=== PATIENT | male | born 1970 | race Two or more races ===

== ENCOUNTER 2023-05-03 08:05 | Emergency (ER) | payer OTHER ==
[~2023-05-03] VITALS: Ht 172.7 cm; Wt 76.2 kg
[2023-05-03] MEDS ORDERED: COZAAR50 MG PO (08:15)
[2023-05-03] MEDS ORDERED: METFORMIN HCL500 M3 PO (08:15)
[2023-05-03] MEDS ORDERED: ZYRTEC10 M3 PO (08:16)
== END 2023-05-03 12:43 | disposition home or self-care (01) ==
LOC: ER 08:05
DX: R51.9 Headache, unspecified (principal); E11.9 Type 2 diabetes mellitus without complications; Z79.84 Long term (current) use of oral hypoglycemic drugs; I10 Essential (primary) hypertension; Z20.822 Contact with and (suspected) exposure to COVID-19; Z88.8 Allergy status to other drugs, medicaments and biological substances